=== PATIENT | female | born 1930 | race Two or more races ===

== ENCOUNTER 2019-01-22 19:14 | Inpatient (IN) | payer MEDICARE, OTHER ==
--- NOTE | 2019-01-23 08:52 | Psychiatric Evaluation ---
DATE OF SERVICE: 01/23/2019 PSYCHIATRIC INITIAL EVALUATION AND MENTAL STATUS EXAMINATION AGE: 88. SEX: Female. PHYSICIAN: Dr. Dunne. CHIEF COMPLAINT: Agitation and severe paranoia. HISTORY OF PRESENT ILLNESS: The patient is an 88-year-old female who was admitted to the hospital from [facility]. The patient has been severely paranoid, and severely irritable and agitated. The patient also has been threatening staff and others in the facility. The patient also has not been able to sleep at night and has been restless. She also has not been able to follow directions and has been confused and hyperverbal. The patient also was threatening AWOL and she was AWOL risk. PAST PSYCHIATRIC HISTORY: The patient has long history of bipolar disorder. PAST MEDICAL HISTORY: The patient has diabetes mellitus type 2 as well as angina pectoris, hypertension, gastroesophageal reflux disease, and hypercholesterolemia. SOCIAL HISTORY: The patient is a . The patient said that she has no children, but she adopted "more than 100 children." The patient also denies any alcohol or any street drug use. She denies any legal issues or abuse issues. ALLERGIES: No known allergies. MENTAL STATUS EXAMINATION: The patient appears her stated age. Anxious. Irritable mood. Cooperative. Thought processes are circumstantial and tangential with pressured speech. The patient denies auditory or visual hallucination, but seems to be suspicious and paranoid, especially when talking about [place] where she lives. The patient denies any thoughts of suicide or homicide. The patient is alert and oriented to the situation, but not to place or person or date. Impaired immediate memory, but intact remote memory. Poor insight and poor judgment. Seems to be of average intelligence based on her verbal ability. ASSESSMENT: PRIMARY DIAGNOSIS: Bipolar disorder, depressed episode severe, with psychotic features. MEDICAL DIAGNOSES: 1. Hypertension. 2. Diabetes mellitus. 2. Gastroesophageal reflux disease: ALLERGIES: THE PATIENT IS ALLERGIC TO IODINE, DEMEROL AND MORPHINE. TREATMENT PLAN: We will monitor the patient's behavior and condition closely. Also, we will continue and adjust psychotropic medications. Also, we will start individual as well as milieu psychotherapy and adjusting her psychotropic medications. ESTIMATED LENGTH OF STAY: 5-7 days. PATIENT'S STRENGTHS AND WEAKNESSES: The patient's strength is not clear at this time. Weaknesses are her poor judgment and her aggressive behavior and poor impulse control. AFTER DISCHARGE PLAN: Outpatient treatment and followup to continue and the patient to return to care placement in [facility]. [facility]# [id number]
[2019-01-23 11:28] VITALS: BP 166/78
[2019-01-23] MEDS ORDERED: Maalox 30 mL Cup PO PRN (12:12)
[2019-01-23] MEDS ORDERED: LACTOSE REDUCED FOOD PO SCH (12:15)
--- NOTE | 2019-01-23 13:55 | History & Physical ---
ADMIT DATE: 01/23/2019 REASON FOR ADMISSION: Psychiatric disorders. HISTORY OF PRESENT ILLNESS: This is an 88-year-old female with underlying history of hypertension and possible dementia, who was admitted for underlying psychiatric illnesses by Dr. Dunne. Dr. Dunne has recorded medical H and P on this patient. During Emergency Room evaluation, the patient noted to have hyponatremia. Initial sodium was 125. The patient was given IV fluids and repeat sodium was 132. The patient is currently asymptomatic. PAST MEDICAL HISTORY: Hypertension. PAST SURGICAL HISTORY: No significant past surgical history. SOCIAL HISTORY: half-way resident. ALLERGIES: Allergic to MEPERIDINE, IODINE and MORPHINE. REVIEW OF SYSTEMS: No fever, no chills, no diarrhea, no vomiting, no abdominal pain, no chest pain or trouble breathing. No headache, no visual or speech disturbance reported. Denies any dysuria or increased urinary frequency or urgency. PHYSICAL EXAMINATION: VITAL SIGNS: Temperature 98.6, pulse 84, respirations 17, blood pressure 166/78. HEART: S1, S2 normal. LUNGS: Clear. ABDOMEN: Soft, nontender. NEUROLOGIC: The patient is awake, confused. EXTREMITIES: No edema. LABORATORY DATA: No lab data is available. DIAGNOSES: 1. Hyponatremia. 2. Hypertension. 3. Possible dementia. 4. Mental disorder. PLAN: Patient is currently admitted to Geropsych Unit. Psych evaluation and management per Psychiatry. Followup sodium level tomorrow morning. Continue lisinopril for benign hypertension. We will also check TCH. The patient's condition and plan of care discussed with the nursing staff. Thank you Dr. Dunne and Dr. Martinez for allowing me to participate in the care of this patient. [facility]# [id number]
[2019-01-23] MEDS ORDERED: Magnesium Hydroxide (MOM) 30 mL UDC PO PRN (15:10)
--- NOTE | 2019-01-24 21:32 | Progress Notes ---
DATE: 01/24/2019 SUBJECTIVE: An 88-year-old female, coming from [facility], paranoid, irritable, agitated, feeling staff is trying to harm her. Confused, has no idea why she is here, talking about "a black man stealing all my belongings." The patient is his AWOL risk. The patient refusing treatment, confused as to why she is here. Ongoing symptoms, safety concerns. PLAN: We will continue to monitor, encourage better med compliance. We will adjust medications. JOB# [id number]
--- NOTE | 2019-01-25 12:50 | Progress Notes ---
DATE: 01/25/2019 Poor sleep, anxious, irritable, refusal of medications. The patient believes the medications are for constipation, easily agitated, demanding, wants to leave, not quite sure why she is here, generally confused. ASSESSMENT: The patient is confused, ongoing paranoia, she is somewhat calmer. PLAN: We will continue to monitor. Consider dosing of Namenda or Aricept. [facility]# [id number]
--- NOTE | 2019-01-26 22:44 | Progress Notes ---
DATE: 01/26/2019 SUBJECTIVE: The patient in the hospital, seems calmer, more cooperative, still fixated on her roommate and ruminating about her roommate, somewhat irritable. Otherwise, she is more med compliant, just generally confused, distracted. Staff noting she seems to be following unit rules and directions. PLAN: We will continue to monitor, recent dose adjustment of medications. Continue Namenda. JOB# [id number]
--- NOTE | 2019-01-27 09:33 | Progress Notes ---
DATE: 01/27/2019 SUBJECTIVE: The patient seems to be calmer, more cooperative, likely approaching her baseline. She is pretty withdrawn, somewhat focused on her roommate, paranoid about her roommate, sometimes mumbling to self, but she is not aggressive. She is taking her medications. There were some compliance issues when she got here. Currently on dosing of Namenda. I am hesitant to put her on Aricept. Her heart rate runs in the 60s. Staff noting improvement. She is redirectable. We will continue to monitor. JOB# [id number]
--- NOTE | 2019-01-28 20:54 | Progress Notes ---
DATE: 01/28/2019 Case was discussed with staff of the patient, reviewed records. This is an 88-year-old female who was under the service of Dr. Martinez because of agitation and paranoia, the patient came from a skilled subacute rehabilitation. The patient has been very paranoid, irritable, agitated, has been threatening staff and others in the facility, has not been able to sleep at night, has been restless, unable to follow direction, confused, hyperverbal. The patient with a long history of bipolar disorder. She is also diabetic as well, with a history of angina, hypertension, GERD, and hypercholesterolemia. The patient is , has no children, but adopted more than 100 children. She is delusional. Denies any alcohol or street drug use. The patient continues to be internally preoccupied. Continues to be fixated on her roommate. She is compliant with the medication with no side effects, no sedation, and no nausea. We will continue outpatient group therapy, milieu therapy, and adjust medication as needed. JOB# [id number]
--- NOTE | 2019-01-29 14:39 | Progress Notes ---
DATE: 01/29/2019 Case was discussed with staff of the patient, reviewed records. The patient continues to have poor insight, demented, confused. She believes she is having chest pain. The staff reported that she complained about this, all the time. I asked them to have her vital signs checked to make sure she is okay. She is sleeping better, eating better. No side effects with the medication, no sedation, no nausea. Continues to have poor insight and we will continue to work with the patient in group therapy, milieu therapy, and adjust the medications as needed. JOB# [id number]
--- NOTE | 2019-01-30 19:34 | Progress Notes ---
DATE: 01/30/2019 SUBJECTIVE: The patient in the hospital, calm, generally cooperative, just somewhat delusional, not making much sense on exam, irritable, easily agitated, feels that the staff may be trying to harm her, but some improvement noted. She has been generally calmer, following unit rules and directions. Vitals were noted. Medications were noted. ASSESSMENT: The patient remains symptomatic, ongoing mood symptoms, confused. PLAN: We will continue to monitor. The patient likely approaching her baseline. [facility]# [id number]
--- NOTE | 2019-01-31 18:11 | Progress Notes ---
DATE: 01/31/2019 SUBJECTIVE: The patient is currently in the hospital, still somewhat paranoid, fearful of others fearful of staff. She does seem to be showing some signs of improvement, calmer, generally more cooperative, ongoing symptoms, safety concerns, still irritable at times, unpredictable, but generally calmer. Medications were noted. [facility]# [id number]
--- NOTE | 2019-02-02 00:43 | Progress Notes ---
DATE: 02/01/2019 The patient is more confused than usual. Sodium 119. We are planning to send her to either the ER or direct admit to [facility]. The patient rambling, making nonsensical statements. We will transfer to higher level of medical care. JOB# [id number]
== END 2019-02-01 22:00 | disposition short-term general hospital (02) | DRG 885 ==
LOC: GERO 01-23 10:51
PROVIDERS: ADMIT Psychiatry & Neurology Psychiatry; ATTEND Psychiatry & Neurology Psychiatry
DX: F31.5 Bipolar disorder, current episode depressed, severe, with psychotic features (principal); E87.1 Hypo-osmolality and hyponatremia; I10 Essential (primary) hypertension; K21.9 Gastro-esophageal reflux disease without esophagitis; E11.9 Type 2 diabetes mellitus without complications; E78.00 Pure hypercholesterolemia, unspecified; Z88.6 Allergy status to analgesic agent; Z88.8 Allergy status to other drugs, medicaments and biological substances
CPT/HCPCS: 83036-90; G0410